=== PATIENT | male | born 1950 | race Caucasian/White ===

== ENCOUNTER 2016-06-13 15:50 | Inpatient (IN) | payer OTHER, MEDICARE ==
[~2016-06-13] VITALS: Ht 175.3 cm; Wt 88.5 kg
[2016-06-13] MEDS ORDERED: ZOLP10TA PO (16:23)
[2016-06-13] MEDS ORDERED: CARI250T PO (16:23)
[2016-06-13 17:03] LABS: HEMOGLOBIN 14.8 g/dL (13.7-18.0)
[2016-06-13 17:17] LABS: BLOOD UREA NITROGEN 18 mg/dL (7-18)
[2016-06-13] MEDS ORDERED: GADOBUTROL 10 MMOL/10 ML PFS ONE (17:44)
[2016-06-13] MEDS ORDERED: DOCUSATE 100 MG CAPSULE PO PRN (18:30)
[2016-06-13] MEDS ORDERED: ZOLPIDEM 5MG TABLET PO PRN (18:30)
[2016-06-13 21:00] VITALS: BP 163/81
[2016-06-13] MEDS ORDERED: CARISOPRODOL 350 MG TABLET PO SCH ×2 (21:00→21:30)
[2016-06-13] MEDS: HEPARIN 5,000 UNITS/ML, 1ML SQ SCH (22:38)
[2016-06-14 00:56] VITALS: BP 163/81
[2016-06-14 01:30] VITALS: BP 99/59
[2016-06-14 03:27] VITALS: BP 157/74
[2016-06-14] MEDS: HEPARIN 5,000 UNITS/ML, 1ML SQ SCH (06:22)
[2016-06-14 07:59] VITALS: BP 148/77
[2016-06-14] MEDS ORDERED: CARISOPRODOL 350 MG TABLET PO SCH (21:00)
== END 2016-06-14 11:29 | disposition home or self-care (01) | DRG 93 ==
LOC: ED 18:27 → EDIP 18:30 → 4EST 20:12
PROVIDERS: ADMIT Hospitalist; ATTEND Hospitalist
DX: R20.2 Paresthesia of skin (principal); G89.4 Chronic pain syndrome; R53.1 Weakness; G47.00 Insomnia, unspecified; I10 Essential (primary) hypertension; Z87.891 Personal history of nicotine dependence; Z91.81 History of falling; Z98.1 Arthrodesis status; Z79.899 Other long term (current) drug therapy; Z81.1 Family history of alcohol abuse and dependence
CPT/HCPCS: 36415; 70450; 70553; 72156; 76706; 80048; 82040; 82306; 82607; 83735; 85025; 93005; 93880; 99285; A9585; J1644

== ENCOUNTER → 2016-12-03 | Outpatient (CLI) | payer OTHER ==
[~2016-12-03] MED LIST: CARI250T PO; GABAPENTIN PO; ZOLP10TA PO
[2016-12-03 09:33] LABS: HEMATOCRIT 48.4 % (39.2-51.8); HEMOGLOBIN 16.3 g/dL (13.7-18.0); WHITE BLOOD COUNT 8.3 x10^3/uL (3.4-10)
[2016-12-03 09:43] LABS: ASPARTATE AMINO TRANSFERASE 32 U/L (15-37); BLOOD UREA NITROGEN 11 mg/dL (7-18)
== END ==
LOC: STAR 08:32
PROVIDERS: ATTEND Neurological Surgery
DX: Z01.818 Encounter for other preprocedural examination (principal); M50.323 Other cervical disc degeneration at C6-C7 level; M43.8X2 Other specified deforming dorsopathies, cervical region; M41.82 Other forms of scoliosis, cervical region; G95.9 Disease of spinal cord, unspecified; R79.1 Abnormal coagulation profile
CPT/HCPCS: 36415; 71020; 72052; 80053; 81003; 85025; 85610; 85730; 93005

== ENCOUNTER 2016-12-10 07:57 | Inpatient (IN) | payer OTHER, MEDICARE ==
[~2016-12-10] VITALS: Ht 175.3 cm; Wt 92.2 kg
[~2016-12-10 07:57] MED LIST changes: +BACITRACIN 50,000 UNIT ONE; +BUPIVACAINE/PF 0.5% ONE; +EPINEPHRINE 1 MG/ML, 1ML ONE; +THROMBIN 5,000 UNIT VIAL TP ONE; +VANCOMYCIN 1,000 MG ONE
[2016-12-10] MEDS ORDERED: LACTATED RINGERS 1,000 ML IV SCH (08:48)
[2016-12-10] MEDS ORDERED: GABA300C10 PO (08:50)
[2016-12-10] MEDS ORDERED: LIDOCAINE 1%, 2ML SQ PRN (09:00)
[2016-12-10] MEDS ORDERED: PROPOFOL 50 ML ONE ×2 (09:19→12:32)
[2016-12-10] MEDS ORDERED: FENTANYL PF 100 MCG/2ML ONE (09:20)
[2016-12-10] MEDS ORDERED: MIDAZOLAM 1 MG/ML, 2ML ONE (09:20)
[2016-12-10] MEDS ORDERED: REMIFENTANIL 2 MG ONE (09:20)
[2016-12-10] MEDS ORDERED: PROPOFOL 10 MG/ML, 20ML ONE (09:31)
[2016-12-10] MEDS ORDERED: DEXAMETHASONE 4 MG/ML, 1ML ONE (09:31)
[2016-12-10] MEDS ORDERED: CEFAZOLIN 1,000 MG ONE (09:31)
[2016-12-10] MEDS ORDERED: ONDANSETRON 2MG/ML, 2ML ONE (09:31)
[2016-12-10] MEDS ORDERED: ROCURONIUM 10 MG/ML ONE (09:31)
[2016-12-10] MEDS ORDERED: SUCCINYLCHOLINE 20 MG/ML, 10ML ONE (09:31)
[2016-12-10] MEDS ORDERED: OXYcodone 5 MG/5 ML ORAL.SOL UDC PO PRN (13:30)
[2016-12-10] MEDS ORDERED: DIAZEPAM 5 MG/ML, 2ML IVPush PRN (13:30)
[2016-12-10] MEDS ORDERED: METOPROLOL 1 MG/ML, 5ML IV PRN (13:30)
[2016-12-10] MEDS ORDERED: LABETALOL 5MG/ML, 20ML IV PRN (13:30)
[2016-12-10] MEDS ORDERED: FENTANYL PF 100 MCG/2ML IV PRN (13:30)
[2016-12-10] MEDS ORDERED: hydrALAzine 20 MG/ML, 1ML IV PRN (13:30)
[2016-12-10] MEDS ORDERED: ONDANSETRON 2MG/ML, 2ML IVPush PRN ×2 (13:30→14:00)
[2016-12-10] MEDS ORDERED: MIDAZOLAM 1 MG/ML, 2ML IV PRN (13:30)
[2016-12-10] MEDS ORDERED: ALBUTEROL SULFATE 2.5 MG/3 ML NPPB PRN (13:30)
[2016-12-10] MEDS ORDERED: HYDROcodone/APAP 7.5-325MG/15ML UDC PO PRN (13:30)
[2016-12-10] MEDS ORDERED: ACETAMINOPHEN 325 MG TABLET PO PRN (13:30)
[2016-12-10] MEDS ORDERED: PROMETHAZINE 25 MG/ML, 1ML IV PRN (13:30)
[2016-12-10] MEDS ORDERED: MEPERIDINE/PF 25MG/0.5ML IVPush PRN (13:30)
[2016-12-10] MEDS ORDERED: EPHEDRINE 50 MG/ML, 1ML IVPush PRN (13:30)
[2016-12-10] MEDS ORDERED: HYDROmorphone PCA 30 MG/30 ML ONE (13:49)
[2016-12-10] MEDS ORDERED: HYDROmorphone 1 MG/ML, 1ML ONE (13:49)
[2016-12-10] MEDS ORDERED: OXYcodone 5 MG/5 ML ORAL.SOL UDC ONE (13:49)
[2016-12-10] MEDS ORDERED: DIPHENHYDRAMINE 25 MG CAPSULE PO PRN (14:00)
[2016-12-10] MEDS ORDERED: BISACODYL 10 MG SUPP PR PRN (14:00)
[2016-12-10] MEDS ORDERED: DIAZEPAM 5 MG TABLET PO PRN (14:00)
[2016-12-10] MEDS ORDERED: TIZANIDINE 4MG TABLET PO PRN (14:00)
[2016-12-10] MEDS ORDERED: HYDROmorphone 1 MG/ML, 1ML IVPush PRN (14:00)
[2016-12-10] MEDS ORDERED: PROMETHAZINE 25 MG/ML, 1ML IM PRN (14:00)
[2016-12-10] MEDS ORDERED: HYDROmorphone PCA 30 MG/30 ML IV PRN (14:00)
[2016-12-10] MEDS: HYDROmorphone 1 MG/ML, 1ML IV PRN ×2 (14:00→14:10)
[2016-12-10] MEDS ORDERED: PHARMACY MAY ADJ FOR RENAL FX MC PRN (14:00)
[2016-12-10] MEDS ORDERED: MAGNESIUM HYDROXIDE 8%, 30ML UDC PO PRN (14:00)
[2016-12-10 15:20] VITALS: BP 161/93
[2016-12-10] MEDS: NS + 20MEQ KCL 1,000 ML IV SCH ×2 (16:24→17:14)
[2016-12-10 18:46] VITALS: BP 151/84
[2016-12-10] MEDS: CEFAZOLIN PMX 1GM/50ML 50 ML IVPB SCH (20:07)
[2016-12-10] MEDS ORDERED: TEMPLATE NON-FORMULARY MED. (Carisoprodol** (Soma**) 250 MG) PO SCH (21:00)
[2016-12-10] MEDS ORDERED: GABAPENTIN 300 MG CAPSULE PO SCH (21:00)
[2016-12-10] MEDS: SODIUM CHLORIDE FLUSH 10ML SYR IVF SCH (21:00)
[2016-12-10] MEDS ORDERED: ZOLPIDEM 10MG TABLET PO SCH (21:00)
[2016-12-10 23:08] VITALS: BP 137/71
[2016-12-11 03:21] VITALS: BP 127/72
[2016-12-11] MEDS: CEFAZOLIN PMX 1GM/50ML 50 ML IVPB SCH (03:44)
[2016-12-11] MEDS: OXYcodone/APAP 5/325MG TABLET PO PRN ×2 (03:44→09:22)
[2016-12-11] MEDS: NS + 20MEQ KCL 1,000 ML IV SCH (03:44)
[2016-12-11 07:00] VITALS: BP 162/70
[2016-12-11] MEDS: SODIUM CHLORIDE FLUSH 10ML SYR IVF SCH (09:00)
[2016-12-11] MEDS ORDERED: SENNA/DOCUSATE TABLET PO SCH (09:00)
== END 2016-12-11 11:45 | disposition home or self-care (01) | DRG 472 ==
LOC: OUT 07:57 → ORIP 13:38 → 4NOR 15:01
PROVIDERS: ADMIT Neurological Surgery; ATTEND Neurological Surgery
PROC: 00NW0ZZ Release Cervical Spinal Cord, Open Approach (ICD-10-PCS; 2016-12-10)
PROC: 0RB30ZZ Excision of Cervical Vertebral Disc, Open Approach (ICD-10-PCS; 2016-12-10)
PROC: 0RG20A0 Fusion of 2 or more Cervical Vertebral Joints with Interbody Fusion Device, Anterior Approach, Anterior Column, Open Approach (ICD-10-PCS; principal; 2016-12-10 11:00)
DX: M48.02 Spinal stenosis, cervical region (principal); M50.022 Cervical disc disorder at C5-C6 level with myelopathy; F12.10 Cannabis abuse, uncomplicated
CPT/HCPCS: 72040; C1713; J0171; J0690; J1100; J1170; J2250; J2405; J2704; J3010; J3370; J3480; J3490; J0330; J7120

== ENCOUNTER 2018-05-03 12:28 | Outpatient (CLI) | payer OTHER ==
[~2018-05-03 12:28] MED LIST changes: -BACITRACIN 50,000 UNIT ONE; -BUPIVACAINE/PF 0.5% ONE; -EPINEPHRINE 1 MG/ML, 1ML ONE; +GABA300C10 PO; -THROMBIN 5,000 UNIT VIAL TP ONE; -VANCOMYCIN 1,000 MG ONE
== END 2018-05-03 23:59 | disposition home or self-care (01) ==
LOC: RAD 12:28
PROVIDERS: ATTEND Registered Nurse Registered Nurse First Assistant
DX: S33.120A Subluxation of L2/L3 lumbar vertebra, initial encounter (principal); M47.816 Spondylosis without myelopathy or radiculopathy, lumbar region; M41.86 Other forms of scoliosis, lumbar region; M48.061 Spinal stenosis, lumbar region without neurogenic claudication; M43.26 Fusion of spine, lumbar region; X58.XXXA Exposure to other specified factors, initial encounter; Y93.89 Activity, other specified; Y92.89 Other specified places as the place of occurrence of the external cause; Y99.8 Other external cause status
CPT/HCPCS: 72082; 72110; 72148

== ENCOUNTER 2018-06-30 13:05 | Emergency (ER) | payer OTHER ==
[~2018-06-30] VITALS: Ht 175.3 cm; Wt 76.4 kg
[2018-06-30 13:21] VITALS: BP 131/71
== END 2018-06-30 14:08 | disposition home or self-care (01) ==
LOC: ED 13:49
DX: G56.01 Carpal tunnel syndrome, right upper limb (principal); R20.2 Paresthesia of skin; I11.9 Hypertensive heart disease without heart failure
CPT/HCPCS: 29125; 99283